=== PATIENT | female | born 1995 | race Two or more races ===

== ENCOUNTER 2021-04-11 07:00 | Outpatient (CLI) | payer OTHER | END 2021-04-11 07:15 | disposition home or self-care (01) | LOC: PPH VACUNA 07:00 | PROVIDERS: ATTEND Emergency Medicine Pediatric Emergency Medicine | DX: Z23 Encounter for immunization (principal) ==

== ENCOUNTER 2021-08-20 08:00 | Outpatient (CLI) | payer OTHER | END 2021-08-20 08:30 | disposition home or self-care (01) | LOC: PPH VACUNA 08:00 | PROVIDERS: ATTEND Emergency Medicine Pediatric Emergency Medicine | DX: Z23 Encounter for immunization (principal) | CPT/HCPCS: 90686; G0008 ==

== ENCOUNTER 2021-11-04 07:17 | Outpatient (CLI) | payer OTHER | END 2021-11-04 07:21 | disposition home or self-care (01) | LOC: LAB 07:17 | DX: U07.1 COVID-19 (principal); B34.1 Enterovirus infection, unspecified ==

== ENCOUNTER 2022-03-25 08:00 | Outpatient (CLI) | payer OTHER | END 2022-03-25 08:05 | disposition home or self-care (01) | LOC: PPH VACUNA 08:00 | PROVIDERS: ATTEND Emergency Medicine Pediatric Emergency Medicine | DX: Z23 Encounter for immunization (principal) ==

== ENCOUNTER → 2022-04-16 06:56 | Outpatient (CLI) | payer OTHER | END | disposition home or self-care (01) | LOC: LAB 06:56 | PROVIDERS: ATTEND Internal Medicine | DX: U07.1 COVID-19 (principal); B34.1 Enterovirus infection, unspecified ==

== ENCOUNTER 2023-03-19 11:20 | Outpatient (CLI) | payer OTHER | END 2023-03-19 11:30 | disposition home or self-care (01) | LOC: PPH VACUNA 11:20 | PROVIDERS: ATTEND Emergency Medicine Pediatric Emergency Medicine | DX: Z23 Encounter for immunization (principal) | CPT/HCPCS: 90686; G0008 ==

== ENCOUNTER 2023-07-01 12:09 | Outpatient (CLI) | payer OTHER | END 2023-07-01 12:11 | disposition home or self-care (01) | LOC: LAB 12:09 | PROVIDERS: ATTEND Preventive Medicine Occupational Medicine | DX: U07.1 COVID-19 (principal) ==

== ENCOUNTER 2024-03-31 07:28 | Emergency (ER) | payer OTHER ==
[~2024-03-31] VITALS: Ht 154.9 cm; Wt 49.9 kg
[2024-03-31] MEDS ORDERED: ELVITEG/COB/EMTRI/TENOFO DISOP 1 UDTAB TABLET PO STA (08:35)
[2024-03-31] MEDS ORDERED: ELVITEG/COB/EMTRI/TENOFO DISOP 1 UDTAB TABLET PO ONE (08:48)
== END 2024-03-31 08:54 | disposition home or self-care (01) ==
LOC: ER 07:28
DX: S69.82XA Other specified injuries of left wrist, hand and finger(s), initial encounter (principal); W46.1XXA Contact with contaminated hypodermic needle, initial encounter; Y93.89 Activity, other specified; Y92.238 Other place in hospital as the place of occurrence of the external cause; Y99.9 Unspecified external cause status; Z88.8 Allergy status to other drugs, medicaments and biological substances

== ENCOUNTER 2024-04-18 16:14 | Outpatient (CLI) | payer OTHER ==
[2024-04-18 16:53] LABS: URINE APPEARANCE Clear; URINE BILIRRUBIN Negative (NEGATIVE); URINE BLOOD Negative; URINE COLOR Yellow; URINE GLUCOSE Negative (NEGATIVE); URINE KETONE Trace (NEGATIVE); URINE LEUKOCYTE Negative; URINE NITRATE Negative; URINE PROTEIN Negative (NEGATIVE); URINE UROBILINOGEN 0.2 E.U./dl
[2024-04-18 16:56] LABS: URINE BACTERIA 65.5 uL (0.0-1933); URINE EPITHELIAL CELLS 4.3 uL (0.0-38.8); URINE RBC 4.2 uL (0.0-20.8)
== END 2024-04-18 16:20 | disposition home or self-care (01) ==
LOC: LAB 16:14
PROVIDERS: ATTEND Internal Medicine Sports Medicine
DX: N30.00 Acute cystitis without hematuria (principal)

== ENCOUNTER 2024-04-20 17:10 | Outpatient (CLI) | payer OTHER | END 2024-04-20 17:12 | disposition home or self-care (01) | LOC: LAB 17:10 | PROVIDERS: ATTEND Preventive Medicine Occupational Medicine | DX: J11.1 Influenza due to unidentified influenza virus with other respiratory manifestations (principal); Z20.828 Contact with and (suspected) exposure to other viral communicable diseases ==

== ENCOUNTER 2024-05-12 04:30 | Outpatient (CLI) | payer OTHER | END 2024-05-12 05:00 | disposition home or self-care (01) | LOC: PPH VACUNA 04:30 | PROVIDERS: ATTEND Emergency Medicine Pediatric Emergency Medicine | DX: Z23 Encounter for immunization (principal) ==

== ENCOUNTER 2024-08-29 14:57 | Outpatient (CLI) | payer OTHER ==
[2024-08-31 06:09] LABS: HEPATITIS A ANTIBODY IGG Negative (Negative); HEPATITIS B SURFACE ANTIBODY Reactive (.); HEPATITIS C VIRUS ANTIBODY Non Reactive (Non Reactive)
== END 2024-08-29 14:58 | disposition home or self-care (01) ==
LOC: LAB 14:57
DX: A64 Unspecified sexually transmitted disease (principal); B19.9 Unspecified viral hepatitis without hepatic coma

== ENCOUNTER 2025-05-18 13:24 | Outpatient (CLI) | payer OTHER | END 2025-05-18 13:34 | disposition home or self-care (01) | LOC: PPH VACUNA 13:24 | PROVIDERS: ATTEND Emergency Medicine Pediatric Emergency Medicine | DX: Z23 Encounter for immunization (principal) ==

== ENCOUNTER 2025-06-15 14:22 | Outpatient (CLI) | payer OTHER ==
[~2025-06-15 14:22] MED LIST: DICLOFENAC POTA50 MG PO; METAXALONE800 MG PO
== END 2025-06-15 15:02 | disposition home or self-care (01) ==
LOC: RAD 14:22
PROVIDERS: ATTEND Physical Medicine & Rehabilitation
DX: M54.6 Pain in thoracic spine (principal); M54.50 Low back pain, unspecified